=== PATIENT | female | born 1975 | race Two or more races ===

== ENCOUNTER 2023-11-16 13:32 | Outpatient (AMB) | payer OTHER, SELFPAY ==
[2023-11-16 13:36] VITALS: BP 116/70; BMI 30.2
--- NOTE | 2023-11-16 13:36 | MHC.OFFVIS ---
Vital Signs 11/16/23 13:36 Height 5 ft 4 in Weight 176 lb BMI 30.2 BP 116/70 Intake Visit Reasons: New patient Pelvic pain Information Interpreted: clinical only Chemical Laboratory Chief: Chemical Laboratory Chief Present Allergies No Known Allergies Allergy (Verified 11/16/23 13:37) Medication List - Last Reconciled 11/16/23 by Charlene Jimenez CNM lisinopril 10 mg PO DAILY Is last menstrual period known: No HPI HPI New patient Pelvic pain: Details: Patient is here because she is has recurrent left-sided pelvic pain been going for a while she is trying to tell what else it correlates with its possible on my questioning that it may correlate with premenstrual symptoms. It is difficult to say because she does not get periods anymore since she had a hysterectomy several years ago at [facility]. 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 And there was no cancer at all as far she knows she has not a Pap smear since then. She does not think she ever had any abnormal Pap smear or any question of cancer really. She was very involved for years with her daughter who is very sick and did not take care of herself with a appointments her daughter has since . She is just recently gone through a divorce Adilene is now 5 months has divorce. She does have support and she has a therapist family. She has been going to the gym has lost 17 lbs. [facility] Medical History (Updated 11/16/23 @ 14:33 by Charlene Jimenez CNM) HTN (hypertension) Surgical History (Updated 11/16/23 @ 14:33 by Charlene Jimenez CNM) S/P H/O: hysterectomy Family History (Updated 11/16/23 @ 13:41 by Bettina Baxter CMA) Father Parkinson disease Mother Diabetes Mother HTN (hypertension) Social History (Updated 11/16/23 @ 13:42 by Bettina Baxter CMA) Alcohol intake: never Patient Tobacco Use Status: Never used Tobacco e-Cigarette/Vaping Use: Never Used Use of substances other than those prescribed or required for medical reasons: No Current occupational status: unemployed Female Reproductive History Menstrual Age of Menarche: 12 Duration of menses: 3-5 days control method: none Total pregnancies: 2 Full term: 2 History of abnormal pap smear: No (previous pap unknown) Physical Exam Vital Signs: Last Vital Signs BP 116/70 11/16/23 13:36 BMI result Body Mass Index 30.2 Const Other: External abdominal exam done today on deep palpation patient does not have any pain on left or right side she has very good strong muscles.. Assessment & Plan Assessment & Plan (1) H/O: hysterectomy: Comment: ? Secondary to enlarged uterus question fibroma versus other -will request records. Code(s): Z90.710 - Acquired absence of both cervix and uterus Category: Surgical (2) S/P : Code(s): Z98.891 - History of uterine scar from previous surgery Category: Surgical (3) Pelvic pain: Comment: Intermittent recurrent left-sided Code(s): R10.2 - Pelvic and perineal pain Category: Medical Plan Reviewed history as best she understands the reason for her hysterectomy. As far she knows there was no question cancer. I asked her to keep track of the timing pain that she has and to see if there any associated symptoms such as breast tenderness that with signal premenstrual phase of her cycle. If this is the case then it will be somewhat reassuring and that it is cyclic and probably tied to ovarian function. She does not have any problems with constipation at all. Planning to get a pelvic ultrasound. And she and I will have visit after ultrasound and pelvic exam review of the ultrasound at that time. After patient left, decision made also to request records from [facility] of her hysterectomy confirm pathology and reasons for the hysterectomy.-patient will need to be contacted to sign for records. Orders: Orders US pelvic and transvaginal Today R10.2 - Pelvic and perineal pain, Z90.710 - Acquired absence of both cervix and uterus, Z98.891 - History of uterine scar from previous surgery Coding Level of Care Code New Pt Level 3 (42843) Diagnoses H/O: hysterectomy Z90.710 S/P Z98.891 Pelvic pain R10.2
== END 2023-11-16 14:43 | disposition home or self-care (01) ==
PROVIDERS: PCP Internal Medicine; Visit Provider Advanced Practice Midwife
DX: Z90.710 Acquired absence of both cervix and uterus (principal); Z98.891 History of uterine scar from previous surgery; R10.2 Pelvic and perineal pain
CPT/HCPCS: 99203

== ENCOUNTER → 2023-11-16 13:32 | Outpatient (BNVA) | payer OTHER, SELFPAY | PROVIDERS: PCP Internal Medicine; Visit Provider Advanced Practice Midwife | DX: R10.2 Pelvic and perineal pain (principal); Z90.710 Acquired absence of both cervix and uterus; Z98.891 History of uterine scar from previous surgery | CPT/HCPCS: 99202 ==

== ENCOUNTER 2023-11-25 11:46 | Outpatient (REF) | payer OTHER, SELFPAY ==
--- NOTE | ~2023-11-25 | US_ITS ---
EXAMINATION: US PELVIS CLINICAL INFORMATION: Pelvic and perineal pain COMPARISON: None available. TECHNIQUE: Ultrasound of the pelvis is performed using both transabdominal and transvaginal transducers along with Doppler. Transvaginal imaging is performed due to inadequate visualization transabdominally. FINDINGS: Uterus: The uterus has been removed. The vaginal cuff is normal in appearance. Adnexa: Both ovaries are visualized. There is normal color flow to the adnexa. There is no ovarian torsion. There is no pelvic ascites or fluid collection. Right ovary measures 2.6 x 1.9 x 1.2 cm. Volume 3.1 mL. Left ovary measures 2.8 x 2.9 x 2.2 cm. Volume 9.4 mL. 1.7 x 1.6 x 1.8 cm follicle is noted, no follow-up imaging is recommended. US/US pelvic and transvaginal IMPRESSION: 1. Prior hysterectomy. 2. Normal ovaries.
== END 2023-11-25 11:47 | disposition home or self-care (01) ==
LOC: HO.US 11:46
PROVIDERS: Visit Provider Advanced Practice Midwife
DX: R10.2 Pelvic and perineal pain (principal); Z90.710 Acquired absence of both cervix and uterus; Z98.891 History of uterine scar from previous surgery
CPT/HCPCS: 76830; 76856

== ENCOUNTER 2023-12-16 14:03 | Outpatient (AMB) | payer OTHER, SELFPAY ==
--- OUTSIDE RECORDS SUMMARY | 2023-12-16 14:04 | XMS_ITS | Continuity of Care Document ---
Author Organization [facility] ter Address [address] [place] [address]- Care Team Providers Care Research Editor Name Role Phone Blake Booker MD Primary Care Physician Encounter [facility] [id number] Date(s): 10/01/21 - 10/01/[address] [address]- Encounter Diagnosis Palpitations(Final) - 10/01/21 Dizziness(Final) - 10/01/21 Discharge Disposition: A-D/C Home Attending Physician: Mj Chapman MD Admitting Physician: Mj Chapman MD Referring Physician: Not on Staff, Referring MD Allergies, Adverse Reactions, Alerts No Known Medication Allergies Immunizations Given and Recorded Vaccine Date Status Refusal Reason tetanus/diphtheria/pertussis, acel(Tdap) 03/12/15 Given Not Given Vaccine Date Status Refusal Reason influenza virus vaccine, inactivated 05/07/17 Not Given Patient Refuses Medications Carafate 1 gm oral tablet 1 Gm, 1, tablet, By Mouth, 4 times a day, # 120 tablet, Refills 0, Tot. Refills 0, Maintenance, 12/13/19 12:20:00 EDT, Route to Pharmacy Electronically, [facility] #[id number], 83.7, kg, 01/21/19 16:54:00 EDT, Dry Weight Start Date: 12/13/19 Status: Ordered docusate-senna 50 mg-187 mg oral tablet 2 tablet, By Mouth, Daily at bedtime, # 60 tablet, 0 Refills, Maintenance, 05/06/17 11:52:46, Tablet Start Date: 05/06/17 Status: Ordered ibuprofen 600 mg oral tablet 600 mg, 1, tablet, By Mouth, Every 8 hours, with food or milk, # 15 tablet, Refills 0, Tot. Refills0, Maintenance, 01/21/19 16:43:50 EDT, Print Requisition Start Date: 01/21/19 Stop Date: 01/26/19 Status: Ordered MiraLax oral powder for reconstitution = 17 Gm, By Mouth, Daily, dissolve in water before taking, # 527 Gm, 0 Refills, Maintenance, 05/06/17 11:52:55, REC Powder Start Date: 05/06/17 Status: Ordered Problem List Condition Effective Dates Status Health Status Inform ant Amenorrhea(Confirmed) Active Right ovarian cyst(Confirmed) Active Helicobacter pylori gastritis(Confirmed) Active Intestinal metaplasia of gas tric mucosa(Confirmed) 1 Active COLBY (obstructive sleep apnea)(Confirmed) Active Pelvic mass(Confirmed) Active PUD (peptic ulcer disease)(C onfirmed) 2 Active 1noted on EGD 04/2017, needs repeat in 1 year 2suspicion of H. pylori Results Radiology Reports * Exam Date Time Procedure Performing Provider Status 10/01/21 3:27 PM Chest 2 Views Frontal and Lat Bernadette Salinas; Curt (Verified) Notes: (Chest 2 Views Frontal and Lat) Reason For Exam: Chest Pain;Other: RESULT: Chest 2 Views Frontal and Lat Chest 2 Views Frontal and Lat Hx of Present Illness: pt c o left sided non radiating c p for the past three days, states feels palpitations and feels like body feels off Pt denies sob, n v, fevers chills, abdominal pain, difficulty urinating dark colored stool.; Reason: Other:; Chest Pain; Clinical Question(s): Other: COMPARISON: 01/21/2019. FINDINGS: LINES AND TUBES: None. LUNGS AND PLEURA: Clear lungs. Normal pulmonary vascularity. No pleural effusion. No pneumothorax. HEART, MEDIASTINUM AND ADRIANE: Heart is normal in size. Normal upper mediastinal and hilar contour. BONES AND SOFT TISSUES: No acute abnormality. IMPRESSION: No acute abnormality. No change to prior study. WSN: [id number] Ordering Physician: Baltazar Mcdowell Dictated By: Poncho Hennessy MD Dictated Date/Time: 10/01/21 3:40 pm Reviewed By: Poncho Hennessy MD Signed By: Poncho Hennessy MD Signed Date/Time: 10/01/21 3:40 pm Transcribed By: CSB Transcribed Date/Time: 10/01/21 3:39 pm Vital Signs Most recent to oldest [Reference Range]: 1 2 3 Oxygen Saturation [94-100 %] 100 % (10/01/21 6:23 PM) 100 % (10/01/21 4:39 PM) 100 % (10/01/21 3:40 PM) Pulse Rate [55-90 bpm] 75 bpm (10/01/21 6:23 PM) 80 bpm (10/01/21 4:39 PM) 78 bpm (10/01/21 3:40 PM) Blood Pressure [90-138/55-84 mm Hg] 119/71mm Hg (10/01/21 6:23 PM) 139/90mm Hg *H* (10/01/21 4:39 PM) 124/78mm Hg (10/01/21 3:40 PM) Respiratory Rate [16-30 br/min] 18 br/min (10/01/21 6:23 PM) 18 br/min (10/01/21 4:39 PM) 18 br/min (10/01/21 1:54 PM) Temperature [96.8-100.4 DegF] 98.1 DegF (10/01/21 4:39 PM) 98.8 DegF (10/01/21 3:40 PM) 98.7 DegF (10/01/21 1:54 PM) Mode of Delivery (Oxygen) Room air (10/01/21 6:23 PM) Room air (10/01/21 4:39 PM) Room air (10/01/21 3:40 PM) Blood pressure sites Arm, left (10/01/21 6:23 PM) Arm, right (10/01/21 4:39 PM) Arm, left (10/01/21 3:40 PM) Temperature Route Oral (10/01/21 4:39 PM) Oral (10/01/21 3:40 PM) Oral (10/01/21 1:54 PM) Social History Social History Type Response Smoking Status Never smoker entered on: 04/12/17 Sex
--- OUTSIDE RECORDS SUMMARY | 2023-12-16 14:04 | XMS_ITS | Continuity of Care Document ---
Author Organization [facility] Address [address] [place] [address]- Care Team Providers Care Airplane Inspector Name Role Phone Mychal PATEL, Claudia Gr Primary Care Physician Encounter [facility] Date(s): 12/13/19 - 01/12/20 [facility] [address] [place] [address]- [facility] Attending Physician: Admtino, Osmin Admitting Physician: Admtr, Clark8 Referring Physician: Admtr, Ar8 Allergies, Adverse Reactions, Alerts No Known Medication [...] 12/13/19 12:20:00 EDT, Route to Pharmacy Electronically, [facility] #[id number], 83.7, kg, 01/21/19 16:54:00 EDT, Dry Weight [...] in 1 year 2suspicion of H. pylori Social History Social History Type Response Smoking Status Never smoker entered on: 04/12/17 Sex
--- OUTSIDE RECORDS SUMMARY | 2023-12-16 14:05 | XMS_ITS | Continuity of Care Document ---
Author Organization [facility] Address [address] [place] [address]- Care Team Providers Care Machine Lacer Name Role Phone Mychal PATEL, Claudia Gr Primary Care Physician Encounter [facility] Date(s): 09/17/22 - 10/17/22 [facility] [address] [place], [place] [address] Allergies, Adverse Reactions, Alerts No Known Medication Allergies Immunizations Given and Recorded Vaccine Date Status Refusal Reason influenza virus vaccine, inactivated 04/08/22 Miguel Ángel rded influenza virus vaccine, inactivated 04/22/21 Miguel Ángel rded influenza virus vaccine, inactivated 05/08/20 Miguel Ángel rded SARS-CoV-2 (COVID-19) mRNA BNT-162b2 vac 09/05/20 Recorded SARS-CoV-2 (COVID-19) mRNA BNT-162b2 vac 08/15/20 Recorded tetanus/diphtheria/pertussis, acel(Tdap) 03/12/15 Given Not Given Vaccine Date Status Refusal Reason influenza virus vaccine, inactivated 05/07/17 Not Given Patient Refuses Medications Carafate 1 gm oral tablet 1 Gm, 1, tablet, By Mouth, 4 times a day, # 120 tablet, Refills 0, Tot. Refills 0, Maintenance, 12/13/19 12:20:00 EDT, Route to Pharmacy Electronically, [facility] #[id number], 83.7, kg, 01/21/19 16:54:00 EDT, Dry Weight [...] Date: 05/06/17 Status: Ordered Problem List Condition Confirmation Course Effective Dates Status Health St atus Informant Amenorrhea Confirmed Active Right ovarian cyst Confirmed Active Helicobacter pylori gastritis Confirmed Active Intestinal metaplasia of gastric mucosa 1 Confirmed Active COLBY (obstructive sleep apnea) Confirmed Active Pelvic mass Confirmed Active PUD (peptic ulcer disease) 2 Confirmed Active 1noted on EGD 04/2017, needs repeat in 1 year 2suspicion of H. pylori Social History Social History Type Response Smoking Status Never smoker entered on: 04/12/17 Sex Patient Care team information Care Team Personnel Name: Bhakti Jackson Position: [facility] PCO RN Member Role: Lifetime Consulting Physician Name: Mychal PATEL , Claudia Gr Position: [facility] Physician -Physician Practices Member Role: PCP Address: Address: [address] [place] [address]- Care Team Related Persons Name: ABDULLAHI AXEL Address: home [address] [place] [address]
--- OUTSIDE RECORDS SUMMARY | 2023-12-16 14:05 | XMS_ITS | Continuity of Care Document ---
Author Organization [facility] Address [address] [place] [address]- Care Team Providers Care Cattle And Wheat Farmer Name Role Phone Mychal PATEL, Claudia Gr Primary Care Physician [place] [facility] Date(s): 10/15/22 - 11/14/22 [facility] [address] [place], [place] [address] Attending Physician: Osmin Cantu Admitting Physician: AdmtrOsmin Referring Physician: Admtr, Ar8 Allergies, Adverse Reactions, [...] 12/13/19 12:20:00 EDT, Route to Pharmacy Electronically, [facility] #[id number], 83.7, kg, 01/21/19 16:54:00 EDT, Dry Weight [...] Care Team Personnel Name: Bhakti Jackson Position: [facility] PCO RN Member Role: Lifetime Consulting Physician Name: Mychal PAETL , Claudia Gr Position: [facility] Physician -Physician Practices Member Role: PCP Address: Address: [address] [place] [address]- Care Team Related Persons Name: AXEL FERNANDO Address: home [address] [place] [address]
--- OUTSIDE RECORDS SUMMARY | 2023-12-16 14:05 | XMS_ITS | Continuity of Care Document ---
Author Organization [facility] Address [address] [place] [address]- Care Team Providers Care Plant Associate Name Role Phone Mychal PATEL, Claudia Gr Primary Care Physician Encounter [facility] Date(s): 09/10/22 - 10/14/22 [facility] [address] [place], [place] [address] Attending Physician: Arnaud PATEL, Leanne Alexander Allergies, Adverse Reactions, Alerts No Known Medication [...] 12/13/19 12:20:00 EDT, Route to Pharmacy Electronically, [facility] #[id number], 83.7, kg, 01/21/19 16:54:00 EDT, Dry Weight [...] Care Team Personnel Name: Bhakti Jackson Position: [facility] PCO RN Member Role: Lifetime Consulting Physician Name: Mychal PATEL , Claudia Gr Position: [facility] Physician -Physician Practices Member Role: PCP Address: Address: [address] [place] [address]- Care Team Related Persons Name: AXEL FERNANDO Address: home [address] [place] [address]
--- OUTSIDE RECORDS SUMMARY | 2023-12-16 14:05 | XMS_ITS | Continuity of Care Document ---
Author Organization [facility] Address [address] [place] [address]- Care Team Providers Care Steel Erector Name Role Phone Mychal PATEL, Claudia Gr Primary Care Physician Encounter [facility] Date(s): 12/28/22 - 01/27/23 [facility] [address] [place], [place] [address] Attending Physician: Osmin Cantu Admitting Physician: Osmin Cantu Referring Physician: AdmtrOsmin Allergies, Adverse Reactions, Alerts No Known Medication [...] 12/13/19 12:20:00 EDT, Route to Pharmacy Electronically, [facility] #[id number], 83.7, kg, 01/21/19 16:54:00 EDT, Dry Weight [...] Personnel Name: Bhakti Jackson Position: [facility] Nurse Member Role: Lifetime Consulting Physician Name: Mychal PATEL , Claudia Gr Position: [facility] Physician - Infectious Disease Member Role: PCP Address: Address: [address] [place] [address]- Care Team Related Persons Name: AXEL FERNANDO Address: home [address] [place] [address]
--- OUTSIDE RECORDS SUMMARY | 2023-12-16 14:05 | XMS_ITS | Continuity of Care Document ---
Author Organization [facility] ter Address [address] [place] [address]- Care Team Providers Care Informatica Developer Name Role Phone Mychal PATEL, Claudia Gr Primary Care Physician [place] [facility] [place] 12/23/20 - 12/23/[address] [address] Discharge Disposition: A-D/C Home Attending Physician: Socrates Vasquez MD Admitting Physician: Socrates Vasquez MD Referring Physician: Socrates Vasquez MD Allergies, Adverse Reactions, Alerts No Known [...] 12/13/19 12:20:00 EDT, Route to Pharmacy Electronically, [facility] #[id number], 83.7, kg, 01/21/19 16:54:00 EDT, Dry Weight [...] in 1 year 2suspicion of H. pylori Procedures Procedure Date Related Diagnosis Body Site Status Esophagogastroduodenoscopy and biopsy 12/23/20 Completed Vital Signs Most recent to oldest [Reference Range]: 1 2 3 Height 160 cm (12/23/20 3:40 PM) Oxygen Saturation [94-100 %] 95 % (12/23/20 4:35 PM) 95 % (12/23/20 4:26 PM) 97 % (12/23/20 3:40 PM) Pulse Rate [55-90 bpm] 80 bpm (12/23/20 4:35 PM) 75 bpm (12/23/20 4:26 PM) 74 bpm (12/23/20 3:40 PM) Blood Pressure [90-138/55-84 mm Hg] 113/71mm Hg (12/23/20 4:35 PM) 116/67mm Hg (12/23/20 4:26 PM) 139/95mm Hg *H* (12/23/20 3:40 PM) Respiratory Rate [16-30 br/min] 26 br/min (12/23/20 4:35 PM) 18 br/min (12/23/20 4:26 PM) 18 br/min (12/23/20 3:40 PM) Temperature [96.8-100.4 DegF] 97.6 DegF (12/23/20 3:40 PM) Mode of Delivery (Oxygen) Room air (12/23/20 4:35 PM) Room air (12/23/20 4:26 PM) Room air (12/23/20 3:40 PM) Blood pressure sites Arm, left (12/23/20 4:35 PM) Arm, left (12/23/20 4:26 PM) Arm, left (12/23/20 3:40 PM) Temperature Route Temporal (12/23/20 3:40 PM) Dry Weight 81.6 kg (12/23/20 3:40 PM) Dry Weight Obtained Via Patient/family s tated (12/23/20 3:40 PM) Social History Social History Type Response Smoking Status Never smoker entered on: 04/12/17 Sex
--- OUTSIDE RECORDS SUMMARY | 2023-12-16 14:05 | XMS_ITS | Continuity of Care Document ---
Author Organization [facility] Address [address] [place] [address]- Care Team Providers Care Supervisor Concrete Stone Fabricating Name Role Phone Mychal PATEL, Claudia Gr Primary Care Physician Encounter [facility] Date(s): 08/26/23 - 09/25/[address] [address] Allergies, Adverse Reactions, Alerts No Known Medication Allergies Immunizations Given and Recorded Vaccine Date Status Refusal Reason influenza virus vaccine, inactivated 04/08/22 Miguel Ángel rded influenza virus vaccine, inactivated 04/22/21 Miguel Ángel rded influenza virus vaccine, inactivated 05/08/20 Miguel Ángel rded SARS-CoV-2 (COVID-19) mRNA BNT-162b2 vac 09/05/20 Recorded SARS-CoV-2 (COVID-19) mRNA BNT-162b2 vac 08/15/20 Recorded tetanus/diphtheria/pertussis, acel(Tdap) 03/12/15 Given Medications Carafate 1 gm oral tablet 1 Gm, 1, tablet, By Mouth, 4 times a day, # 120 tablet, Refills 0, Tot. Refills 0, Maintenance, 12/13/19 12:20:00 EDT, Route to Pharmacy Electronically, [facility] #[id number], 83.7, kg, 01/21/19 16:54:00 EDT, Dry Weight [...] Care Team Personnel Name: Bhakti Jackson Position: [facility] Nurse Member Role: Lifetime Consulting Physician Name: Mychal PATEL , Claudia Gr Position: [facility] Physician - Infectious Disease Member Role: PCP Address: Address: [address] [place] [address]- Care Team Related Persons Name: AXEL FERNANDO Address: home [address] [place] [address]
--- OUTSIDE RECORDS SUMMARY | 2023-12-16 14:05 | XMS_ITS | Continuity of Care Document ---
Author Organization [facility] ter Address [address] [place] [address]- Care Team Providers Care Storage Center Manager Name Role Phone Claudia Horta MD Primary Care Physician Encounter [facility] [place] [place] Date(s): 07/09/20 - 07/10/[address] [address]- Discharge Disposition: A-D/C Walkout Attending Physician: Not on Staff, Attending MD Admitting Physician: Not on Staff, Admitting MD Referring Physician: Not on Staff, Referring [...] 12/13/19 12:20:00 EDT, Route to Pharmacy Electronically, [facility] #[id number], 83.7, kg, 01/21/19 16:54:00 EDT, Dry Weight [...] in 1 year 2suspicion of H. pylori Vital Signs Most recent to oldest [Reference Range]: 1 2 Oxygen Saturation [94-100 %] 100 % (07/10/20 1:32 AM) 100 % (07/09/20 11:42 PM) Pulse Rate [55-90 bpm] 69 bpm (07/10/20 1:32 AM) 86 bpm (07/09/20 11:42 PM) Blood Pressure [90-138/55-84 mm Hg] 122/ 78mm Hg (07/10/20 1:32 AM) 129/76mm Hg (07/09/20 11:42 PM) Respiratory Rate [16-30 br/min] 16 br/mi n (07/10/20 1:32 AM) 16 br/min (07/09/20 11:42 PM) Temperature [96.8-100.4 DegF] 98.3 DegF (07/10/20 1:32 AM) 98.3 DegF (07/09/20 11:42 PM) Mode of Delivery (Oxygen) Room air (07/10/20 1:32 AM) Room air (07/09/20 11:42 PM) Blood pressure sites Arm, right (07/10/20 1:32 AM) Arm, left (07/09/20 11:42 PM) Temperature Route Oral (07/10/20 1:32 AM) Oral (07/09/20 11:42 PM) Social History Social History Type Response Smoking Status Never smoker entered on: 04/12/17 Sex
--- OUTSIDE RECORDS SUMMARY | 2023-12-16 14:05 | XMS_ITS | Continuity of Care Document ---
Author Organization [facility] Address [address] [place] [address]- Care Team Providers Care Detective Investigator Name Role Phone Mychal PATEL, Claudia Gr Primary Care Phys[id number] Date(s): 09/29/22 - 01/27/23 [facility] [address] [place], [place] [address] Attending Physician: Arnaud PATEL, Leanne Alexander [...] 12/13/19 12:20:00 EDT, Route to Pharmacy Electronically, [facility] #[id number], 83.7, kg, 01/21/19 16:54:00 EDT, Dry Weight [...] Care Team Personnel Name: Bhakti Jackson Position: [facility] Nurse Member Role: Lifetime Consulting Physician Name: Mychal PATEL , Claudia Gr Position: [facility] Physician - Infectious Disease Member Role: PCP Address: Address: [address] [place] [address]- Care Team Related Persons Name: AXEL FERNANDO Address: home [address] [place] [address]
--- OUTSIDE RECORDS SUMMARY | 2023-12-16 14:05 | XMS_ITS | Continuity of Care Document ---
Author Organization [facility] Address [address] [place] [address]- Care Team Providers Care Plant Superintendent Name Role Phone Mychal PATEL, Claudia Gr Primary Care Physician Encounter [facility] [place] [place] Date(s): 12/26/20 - 01/25/21 [facility] [address] [place], [place] [address] Allergies, Adverse Reactions, Alerts No Known [...] 12/13/19 12:20:00 EDT, [id number], 83.7, kg, 01/21/19 16:54:00 EDT, Dry Weight [...]
--- OUTSIDE RECORDS SUMMARY | 2023-12-16 14:05 | XMS_ITS | Continuity of Care Document ---
Author Organization [facility] Address [address] [place] [id number]- Care Team Providers Care Inspector Pawnshop Detail Name Role Phone Claudia Horta MD Primary Care Physician Encounter [facility] Date(s): 09/05/20 - 10/05/20 [facility] [address] [place] [id number] Attending Physician: Osmin Cantu Admitting Physician: Admtr, Ar8 Referring Physician: Admtr, Ar8 Allergies, Adverse Reactions, [...] 12/13/19 12:20:00 EDT, Route to Pharmacy Electronically, [id number], 83.7, kg, 01/21/19 16:54:00 EDT, Dry Weight [...]
[2023-12-16 14:23] VITALS: BP 122/70; BMI 30.4
--- NOTE | 2023-12-16 14:23 | MHC.OFFVIS ---
Vital Signs 12/16/23 14:23 Height 5 ft 4 in Weight 177 lb BMI 30.4 BP 122/70 Intake Visit Reasons: Ultrasound Follow up Information Interpreted: clinical only On Site Soil Evaluator: On Site Soil Evaluator Present Allergies No Known Allergies Allergy (Verified 12/16/23 14:24) Is last menstrual period known: No HPI HPI Ultrasound Follow up: Details: Patient is here to review her ultrasound findings she had an ultrasound just to confirm what she had reported about what was removed in [facility] years ago. Additionally the patient went to [facility] and obtained her records of her hysterectomy which include the pathology and we reviewed those in detail today. Additionally the history and discussion of options prior to the hysterectomy disclosed more of the reasons why she had the hysterectomy there was indeed is suspicion and worry for cancer because of the rapid growth of her fibroids but the pathology did not show malignancy. She had her uterus removed the cervix removed the tubes were removed and fibroids in the broad ligament were also removed as well Patient also had to be to tell her what her blood type was but review of historical visits and any blood test done here at [facility] nor the records from [facility] revealed a blood type having been done in this facility. Presumably she would have had a type and Rh before hysterectomy and so I recommend that she request the type and Rh from [facility]. Of note her H&H only dropped from 11 something to 10 something pre and postop. [facility] Medical History HTN (hypertension) Surgical History (Updated 12/16/23 @ 15:38 by Charlene Jimenez CNM) S/P H/O: hysterectomy Family History Father Parkinson disease Mother Diabetes Mother HTN (hypertension) Social History Alcohol intake: never Patient Tobacco Use Status: Never used Tobacco e-Cigarette/Vaping Use: Never Used Current occupational status: unemployed Female Reproductive History Menstrual Age of Menarche: 12 Duration of menses: 3-5 days control method: none Total pregnancies: 2 Full term: 1 History of abnormal pap smear: No (previous pap neg,per patient unsure date) Physical Exam Vital Signs: Last Vital Signs BP 122/70 12/16/23 14:23 BMI result Body Mass Index 30.4 Results Reviewed Results Reviewed: [address] [address] Ultrasound Report Signed Patient: Silva Chatman MR#: [id number] : 1975 Acct:[id number] Age/Sex: 47 / F ADM Date: 11/25/23 Loc: HO.US Attending Dr: Charlene Jimenez CNM Ordering Physician: Charlene Jimenez CNM Date of Service: 11/25/23 Procedure(s): US pelvic and transvaginal Accession Number(s): [id number] cc: Charlene Jimenez CNM~ EXAMINATION: US PELVIS CLINICAL INFORMATION: Pelvic and perineal pain COMPARISON: None available. TECHNIQUE: Ultrasound of the pelvis is performed using both transabdominal and transvaginal transducers along with Doppler. Transvaginal imaging is performed due to inadequate visualization transabdominally. FINDINGS: Uterus: The uterus has been removed. The vaginal cuff is normal in appearance. Adnexa: Both ovaries are visualized. There is normal color flow to the adnexa. There is no ovarian torsion. There is no pelvic ascites or fluid collection. Right ovary measures 2.6 x 1.9 x 1.2 cm. Volume 3.1 mL. Left ovary measures 2.8 x 2.9 x 2.2 cm. Volume 9.4 mL. 1.7 x 1.6 x 1.8 cm follicle is noted, no follow-up imaging is recommended. US/US pelvic and transvaginal IMPRESSION: 1. Prior hysterectomy. 2. Normal ovaries. Dictated By: Mackenzie Rashid MD Signed By: <Electronically signed by Mackenzie Rashid MD in OV> 12/08/23 0949 DD/ 1202 TD/TT: Heel Cover Softener: Complete records from patient's hysterectomy 2017 at [facility] were reviewed including the preop discussion the operative procedure and the pathology and postoperative H&H labs.. Assessment & Plan Assessment & Plan (1) H/O: hysterectomy: Comment: ? Secondary to enlarged uterus question fibroma versus other -patient obtain the records herself at [facility] they in fact show concern for cancer secondary to rapid growth of the fibroids. However no cancer was found on the pathology postoperatively she had a total hysterectomy removal of her tubes and cervix and there were fibroids also in the broad ligament as well the uterus was significantly enlarged from fibroids. Code(s): Z90.710 - Acquired absence of both cervix and uterus Category: Medical Plan Patient is here to review her ultrasound findings she had an ultrasound just to confirm what she had reported about what was removed in [facility] years ago. Additionally the patient went to [facility] and obtained her records of her hysterectomy which include the pathology and we reviewed those in detail today. Additionally the history and discussion of options prior to the hysterectomy disclosed more of the reasons why she had the hysterectomy there was indeed is suspicion and worry for cancer because of the rapid growth of her fibroids but the pathology did not show malignancy. She had her uterus removed the cervix removed the tubes were removed and fibroids in the broad ligament were also removed as well Patient also had to be to tell her what her blood type was but review of historical visits and any blood test done here at [facility] nor the records from [facility] revealed a blood type having been done in this facility. Presumably she would have had a type and Rh before hysterectomy and so I recommend that she request the type and Rh from [facility]. Of note her H&H only dropped from 11 something to 10 something pre and postop. Coding Level of Care Code Est Pt Level 3 (09792) Diagnoses H/O: hysterectomy Z90.710
== END 2023-12-16 15:02 | disposition home or self-care (01) ==
LOC: HO.HWSM 14:03
PROVIDERS: PCP Internal Medicine; Visit Provider Advanced Practice Midwife
DX: Z90.710 Acquired absence of both cervix and uterus (principal)
CPT/HCPCS: 99213

== ENCOUNTER → 2023-12-16 14:03 | Outpatient (BNVA) | payer OTHER, SELFPAY | PROVIDERS: PCP Internal Medicine; Visit Provider Advanced Practice Midwife | DX: R10.2 Pelvic and perineal pain (principal); Z90.710 Acquired absence of both cervix and uterus | CPT/HCPCS: 99212 ==

== ENCOUNTER 2024-04-02 14:12 | Outpatient (REF) | payer OTHER, SELFPAY ==
[2024-04-02 15:34] LABS: Alanine Aminotransferase 10 U/L (0-31); Albumin Level 4.4 g/dL (3.5-5.0); Alkaline Phosphatase 120 U/L (39-117); Anion Gap 12 (12-20); Aspartate Amino Transferase 16 U/L (5-31); Bilirubin Total 0.2 mg/dL (0.0-1.0); Blood Urea Nitrogen 13 mg/dL (9-16); Calcium 9.6 mg/dL (8.4-10.2); Carbon Dioxide 27 mmol/L (22-29); Chloride 103 mmol/L (96-108); Estimated Glomerular Filt Rate > 60; Glucose Random 102 mg/dL (60-115); Potassium 4.1 mmol/L (3.3-5.1); Sodium 138 mmol/L (135-145); Total Protein 7.5 g/dL (6.5-8.0)
[2024-04-03 10:29] LABS: Varicella IgG Antibody 4.52 S/CO
[2024-04-03 22:19] LABS: Rubeola IgG (Measles) >300.00 AU/mL
[2024-04-05 02:24] LABS: TS Negative Control Passed; TS Panel A 1; TS Panel B 0; TS Positive Control Passed; TSpotTB Negative (Negative)
== END 2024-04-02 14:13 | disposition home or self-care (01) ==
LOC: HO.LAB 14:12
PROVIDERS: PCP Internal Medicine; Visit Provider Internal Medicine
DX: I10 Essential (primary) hypertension (principal); M54.50 Low back pain, unspecified
CPT/HCPCS: 36415; 80053; 86481; 86735; 86762; 86765; 86787

== ENCOUNTER 2025-05-24 06:40 | Outpatient (REF) | payer OTHER, SELFPAY ==
--- OUTSIDE RECORDS SUMMARY | 2025-05-24 06:48 | XMS_ITS | Clinical Summary ---
Author Organization [facility] Address [address] [place] [address] Care Team Providers Care Child And Family Services Specialist Name Role Phone Blake Booker MD Primary Care Provider [phone] Allergies Active Allergy Reactions Criticality Noted Date Comments Other Runny nose Medium 08/26/2017 seasonal Medications lisinopril-hydro CHLOROthiazide (PRINZIDE,ZESTOR ETIC) 10-12.5 mg per tablet Take 1 Tablet by mouth daily. 02/24/2022 Active Active Problems Problem Noted Date Diagnosed Date Nocturnal hypoxemia 09/28/2021 Obesity (BMI 30.0-34.9) 08/27/2021 Hiatal hernia 12/31/2020 Hypertriglyceridemia 12/17/2020 Hypertension 06/09/2020 Vitamin D deficiency 08/08/2017 Elevated alkaline phosphatase level 07/29/2017 Intestinal metaplasia of gastric mucosa 07/29/19 18 Overview (06/28/2024): [email or web address] 04/2018. Obstructive sleep apnea syndrome 07/29/2017 Overview (06/28/2024): UNTREATED (Aug 2021) [facility] Home sleep test 09/16/2021; weight 165; BMI 33. AHI 13. 20 unclassified apneas, 5 obstructive apneas and 40 hypopneas. Average oxygen saturation 92% with oxygen pinky 58%. Obstructive sleep apnea-mild with mostly hypopneas and unclassified apneas and nocturnal hypoxemia based on 2021 home sleep test. Peptic ulcer 07/29/2017 Overview (06/28/2024): Small ulcer 2013 during second . Immunizations Immunization Administration Dates Next Due Influenza trivalent, with pr eservative (Fluzone; Afluria) 6mo and older 05/08/2020 Tdap Tetanus diptheria acell ular pertussis (Boostrix; Adacel) 7yo and older 03/12/2015 Surgical History Surgery Date Site/Laterality Comments UPPER GASTROINTESTINAL ENDOSCOPY 04/12/2017 PROCEDURE: UPPER GI ENDOSCOPY/EXAM SECTION PROCEDURE: HISTORICAL DELIVERY OTHER SURGICAL HISTORY PROCEDURE: OR TOTAL ABDOMINAL HYSTERECT W/WO RMVL TUBE OVARY Medical History Medical History Date Comments Peptic ulcer 07/29/2017 DX:Peptic ulcer Elevated alkaline phosphatase level 07/29/2017 DX:Elevated alkaline phosphatase level Vitamin D deficiency 08/08/2017 DX:Vitamin D deficiency Family History Medical History Relation Name Comments Liver cancer Brother Diabetes Father htn hyperlipide librado Diabetes Mother stroke hyperlip idemia Colon cancer Neg Hx Relation Name Status Comments Brother Father Mother Social History Tobacco Use Types Packs/Day Years Used Date Smoking Tobacco: Never Smokeless Tobacco: Never Alcohol Use Standard Drinks/Week Comments No 0 (1 standard drink = 0.6 oz pur e alcohol) Comments Unknown Sex and Gender Information Value Date Recorded Sex Assigned at Not on file Legal Sex Female 8:34 PM EST Gender Identity Not on file Sexual Orientation Not on file Obstetrics History Last Filed Vital Signs Vital Sign Reading Time Taken Comments Blood Pressure 131/82 05/12/2022 11:31 AM EST Pulse 96 05/12/2022 11:31 AM EST Temperature - - Respiratory Rate - - Oxygen Saturation - - Inhaled Oxygen Concentration - - Weight 88 kg (194 lb) 05/12/2022 11:31 AM EST Height 160 cm (5' 3 ) 05/12/2022 11:31 AM EST Body Mass Index 34.37 05/12/2022 11:31 AM EST Plan of Treatment Health Maintenance Due Date Last Done Comments Breast Cancer Screening 1975 Colorectal Cancer Screening: Colonoscopy 1975 Hepatitis B Vaccines (1 of 3 - 19+ 3-dose series) 12/07/1994 HIV Screening 06/05/2022 Hepatitis C Screening 06/05/2022 Social Influencers of Health Screening 06/05/2022 Hypertension/CHF/CAD Annual BMP Blood Test 08/27/2022 08/27/2021 Depression Screening 07/04/2024 COVID-19 Vaccine (3 - 2024-2 6 season) 2025 09/05/2020, 08/15/2020 Influenza Vaccine (#1) 2025 05/08/2020 DTaP,Tdap,and Td Vaccines (2 - Td or Tdap) 03/12/2025 03/12/2015 Cholesterol Screening (Lipid Panel) 08/27/2026 08/27/2021 RSV Immunization Adult Patients (1 - 1-dose 75+ series) 12/07/2050 HIB Vaccines Aged Out No longer eligi ble based on patient's age to complete this topic HPV Vaccines Aged Out No longer eligi ble based on patient's age to complete this topic Hepatitis A Vaccines Aged Out No long er eligible based on patient's age to complete this topic IPV Vaccines Aged Out No longer eligi ble based on patient's age to complete this topic MMR Vaccines Aged Out No longer eligi ble based on patient's age to complete this topic Meningococcal ACWY Vaccine Aged Out N o longer eligible based on patient's age to complete this topic Meningococcal B Vaccine Aged Out No l onger eligible based on patient's age to complete this topic Pneumococcal Vaccine: Pediatrics (0 to 5 Years) and At-Risk Patients (6 to 49 Years) Aged Out No longer eligible b ased on patient's age to complete this topic RSV Immunization Patients Under 20 months Aged Out No longer eligible b ased on patient's age to complete this topic Varicella Vaccines Aged Out No longer eligible based on patient's age to complete this topic Procedures Procedure Name Priority Date/Time Associated Diagnosis Comments ANNUAL BMP BLOOD TEST Routine 08/27/2021 LIPID PANEL Routine 08/27/2021 from Last 3 Months or Most Recently Relevant to Health Maintenance Results * Annual BMP Blood Test (08/27/2021) Pathologist [facility] Annual BMP Blood Test abstracted us Historical Provider HEALTH MAINTENANCE Final Result * (ABNORMAL) Lipid panel (08/27/2021) [facility] LDL/HDL Ratio 5(A) 0 - 4 Triglycerides 262(A) 0 - 150 mg/dL Cholesterol 206(A) 0 - 200 mg/dL HDL 42 >=40 mg/dL LDL Cholesterol 112(A) 0 - 100 mg/dL Blood Venous blood specimen / Unknown us Historical Provider LAB BLOOD ORDERABLES Jazmin l Result from Last 3 Months or Most Recently Relevant to Health Maintenance Care Teams Child And Family Services Specialist Relationship Specialty Start Date End Date Blake Booker MD [address] [place] [address] PCP - General Internal Medicine 10/02/19
[2025-05-24 06:55] LABS: MANUAL DIFF FLAG NO
[2025-05-24 07:20] LABS: Hematocrit 39.0 % (37.0-47.0); Hemoglobin 12.8 g/dl (12.0-16.0); Imm Gran Abs Auto 0.03 X10*3/uL (0.00-0.03); Imm Gran Pct Auto 0.3 % (0.0-0.4); Lymphocytes Absolute Auto 2.5 X10*3/uL (1.2-4.9); Mean Corpuscular HGB Conc 32.8 g/dl (31.0-35.0); Mean Corpuscular Hemoglobin 28.6 pg (27.0-33.0); Mean Corpuscular Volume 87.1 fL (80.0-98.0); NRBC Abs Auto 0.000 X10*3/uL (0.0-0.012); NRBC Pct Auto 0.0 /100WBC (0.0-0.2); Platelet Count 244 X10*3/uL (160-400); Red Blood Count 4.48 X10*6/uL (4.20-5.50); White Blood Count 9.4 X10*3/uL (4.8-10.8)
[2025-05-24 07:57] LABS: Alanine Aminotransferase 15 U/L (0-31); Albumin Level 4.6 g/dL (3.5-5.0); Alkaline Phosphatase 97 U/L (39-117); Anion Gap 11 (12-20); Aspartate Amino Transferase 25 U/L (5-31); Blood Urea Nitrogen 11 mg/dL (9-16); Calcium 9.3 mg/dL (8.4-10.2); Carbon Dioxide 29 mmol/L (22-29); Chloride 104 mmol/L (96-108); Cholesterol 194 mg/dL (<200); Estimated Glomerular Filt Rate > 60; HDL Cholesterol 43 mg/dL (>40); Potassium 4.2 mmol/L (3.3-5.1); Sodium 140 mmol/L (135-145); Total Protein 7.4 g/dL (6.5-8.0); Triglycerides 176 mg/dL (<150)
[2025-05-24 08:44] LABS: HIV Num 1 0.05 S/CO (0.00-0.99); Syphilis Screen Nonreactive (Nonreactive)
[2025-05-24 08:45] LABS: Thyroid Stimulating Hormone 3.18 uIU/mL (0.32-4.0)
[2025-05-27 10:35] LABS: CT PCR Urine NOT DETECTED (Not Detect.); NG PCR Urine NOT DETECTED (Not Detect.)
== END 2025-05-24 06:41 | disposition home or self-care (01) ==
LOC: HO.LAB 06:40
PROVIDERS: PCP Internal Medicine; Visit Provider Internal Medicine
DX: Z00.00 Encounter for general adult medical examination without abnormal findings (principal); E66.811 Obesity, class 1; I10 Essential (primary) hypertension; L65.0 Telogen effluvium; Z20.2 Contact with and (suspected) exposure to infections with a predominantly sexual mode of transmission; Z11.4 Encounter for screening for human immunodeficiency virus [HIV]; Z01.84 Encounter for antibody response examination
CPT/HCPCS: 80053; 80061; 84443; 85025; 86780; 87389; 87491; 87591